=== PATIENT | female | born 1970 | race Caucasian/White ===

== ENCOUNTER 2020-11-08 09:45 | Observation (INO) | payer OTHER, SELFPAY ==
[2020-11-08] VITALS (8 sets, daily range): BP systolic 120–151; BP diastolic 69–91; PULSE 66–93; RESP 16–20; TEMP 36.2–37.3; O2SAT 92–96; BMI 38.5
--- NOTE | ~2020-11-08 | XR_ITS ---
EXAMINATION: XR chest 1V portable EXAM DATE: 11/08/2020 11:34 INDICATION: Cough. TECHNIQUE: Frontal and lateral projections of the chest obtained and reviewed. There is no prior gustabo dy for comparison. FINDINGS: Some scattered linear left basilar opacities, most consistent with atelectasis. Can't excl ude developing infection. Please clinically correlate. The lungs are otherwise clear. There are no p leural effusions. The cardiomediastinal silhouette is within normal limits. There is no pneumothora x suspected. The bones and soft tissues are unremarkable. IMPRESSION: Predominantly linear left basilar opacities, atelectasis but can't exclude developing inf ection. Please clinically correlate. Reviewed, dictated and finalized at location B. 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 Please clinically correlate.
--- NOTE | ~2020-11-08 | US_ITS ---
EXAMINATION: US venous doppler [facility] DATE: 11/09/2020 13:10 INDICATION: Left lower limb pain TECHNIQUE: Grayscale ultrasound images without and with compression and Doppler ultrasound images of the bilateral lower extremity veins were obtained. COMPARISON: None. FINDINGS: The visualized portions of right common femoral vein, profunda (deep) femoral vein, femoral vein, pop liteal vein, posterior tibial veins, peroneal veins, gastrocnemius vein and greater saphenous vein ou tflow are patent. The visualized portions of left common femoral vein, profunda femoral vein, femoral vein, popliteal v ein, posterior tibial veins, peroneal veins, gastrocnemius vein and greater saphenous vein outflow ar e patent. IMPRESSION: 1. No deep venous thrombosis in either lower limb. Reviewed, dictated and finalized at location A. RECOVERER
--- NOTE | ~2020-11-08 | CT_ITS ---
EXAMINATION: CTA chest PE protocol EXAM DATE: 11/09/2020 08:10 INDICATION: Hypoxia. Shortness of breath. TECHNIQUE: Spiral CTA of the chest (pulmonary arteries) was performed with 100 cc Omnipaque 350 intr avenous contrast injection. Images were acquired during the pulmonary arterial phase. Coronal maxi mum intensity projection 3D-reconstructions were created by the technologist on dedicated workstation . Axial, coronal and sagittal reformatted images were reviewed. The dose-length product (DLP) for t his examination was 896.40 mGy-cm. The exposure was tailored according to patient size (auto mA exp osure control), and iterative reconstruction (ASIR) was used as additional dose reduction technique. There is no prior study for comparison. FINDINGS: Pulmonary arteries are well opacified and without intraluminal filling defects. No thora cic aortic dissection. There our scattered bibasilar predominantly linear opacities with small regions of confluence, appear ance most consistent with atelectasis or atelectasis and infection. There is mild interlobular septal thickening, dependent predominant, possible mild pulmonary edema. There are no pleural or pericardia l effusions. Tracheobronchial tree is patent. There is no mediastinal, hilar or axillary lymphade nopathy. There is no pneumothorax. Heart normal in size. There is mild coronary arterial calcif ication, arterial sclerosis. Gastroesophageal surgical changes and small hiatal hernia or gastric pu ll-through. There is mild thoracic spondylosis without osteoblastic or osteolytic lesions identified . IMPRESSION: 1. Patchy bibasilar predominantly linear opacities could be atelectasis, possibly with superimposed infection. 2. Mild intralobular septal thickening, possible mild pulmonary edema, or interstitial lung disease of chronic. 3. No pulmonary emboli. Reviewed, dictated and finalized at location B. L MAID IMPRESSION: 1. Patchy bibasilar predominantly linear opacities could be atelectasis, possi milagro with superimposed infection. 2. Mild intralobular septal thickening, possible mild pulmonary edema, or inte rstitial lung disease of chronic. 3. No pulmonary emboli.
--- NOTE | ~2020-11-08 | CT_ITS ---
EXAMINATION: CT brain wo con EXAM DATE: 11/09/2020 08:10 INDICATION: Headache, photophobia. Shortness of breath and hypoxemia. TECHNIQUE: Spiral CT of the head was performed without contrast. Axial, coronal and sagittal images were reviewed. The dose-length product (DLP) for this examination was 605.33 mGy-cm. The exposure w as tailored according to patient size, and iterative reconstruction (ASIR) was used as additional dos e reduction technique. There is no prior study for comparison. FINDINGS: There is no acute intraparenchymal hemorrhage. No evidence of intraparenchymal brain mass lesion. No evidence of acute infarction. There is no mass effect or midline shift. The ventricles are normal in size. There are no extra-axial collections. There are no acute calvarial fractures. T he orbits are unremarkable. Soft tissue is unremarkable. The visualized sinuses and mastoid air lionel ls are well aerated. IMPRESSION: 1. Normal head CT examination. Reviewed, dictated and finalized at location B. 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
[2020-11-08 11:18] LABS: Basophils Percent Auto 0.2 % (0.2-1.2); Eosinophils Absolute Auto 0.2 K/mm3 (0-0.3); Eosinophils Percent Auto 3.6 % (0-4.4); Hematocrit 35.6 % (37.0-47.0); Immature Granulocyte Absolute 0.02 K/mm3 (0.00-0.031); Immature Granulocyte Percent A 0.3 % (0-0.5); Lymphocytes Absolute Auto 0.47 K/mm3 (0.9-3.2); Lymphocytes Percent Auto 7.7 % (18.3-44.2); Mean Corpuscular HGB Conc 33.7 g/dl (32-36); Mean Corpuscular Hemoglobin 31.9 pg (26-34); Mean Corpuscular Volume 94.7 fl (80-100); Mean Platelet Volume 9.1 fl (7.4-10.4); Monocytes Absolute Auto 0.5 K/mm3 (0.1-0.6); Monocytes Percent Auto 8.2 % (2.6-8.5); Neutrophils Absolute Auto 4.9 K/mm3 (1.3-6.7); Platelet Count Result 204 k/mm3 (150-375); Red Blood Count 3.76 M/mm3 (4.2-5.4); Red Cell Distribution Width 14.3 % (11.5-14.5); White Blood Count 6.1 K/mm3 (4.5-10.0)
[2020-11-08 11:28] LABS: Prothrombin Time 13.4 Seconds (11.1-14.7)
[2020-11-08 11:29] LABS: Partial Thromboplastin Time 32.6 SECONDS (22.3-36.8)
[2020-11-08 11:33] LABS: Lactic Acid Reflex 0.7 mmol/L (0.7-2.1)
[2020-11-08 11:36] LABS: Alanine Aminotransferase 25 U/L (4-35); Albumin Level 3.6 g/dL (3.5-5.1); Alkaline Phosphatase 58 U/L (38-126); Anion Gap 3 mmol/L (8-16); Aspartate Amino Transferase 21 U/L (14-36); Bilirubin,Total 0.6 mg/dL (0.2-1.3); Blood Urea Nitrogen 12 mg/dL (7-17); Calcium 7.9 mg/dL (8.4-10.2); Carbon Dioxide 28 mmol/L (22-30); Chloride 104 mmol/L (98-107); Estimated CRCL calculation 81 ml/min; Estimated Glomerular Filt Rate 59; Glucose 103 mg/dL (65-105); Lipase 41 U/L (23-300); Potassium 3.7 mmol/L (3.4-5.0); Sodium 135 mmol/L (137-145)
[2020-11-08] MEDS: DEXAMETHASONE SOD PHOS INJ 4 MG/ML VIAL 6 MG IV PUSH (11:37)
[2020-11-08] MEDS: SODIUM CHLORIDE 0.9% IV 1,000 ML 999 ML IV CONT (11:37)
[2020-11-08] MEDS: ONDANSETRON INJ 4 MG/2 ML VIAL IV PUSH (11:37)
[2020-11-08 13:01] LABS: Add Urine Microscopic? YES; Appearance Urine Cloudy (Clear); Bacteria Urine 4+ /hpf; Bilirubin Urine Negative (Negative); Blood Urine Negative (Negative); Color Urine Yellow (Yellow); Glucose Urine UA Negative (Negative); Ketones Urine Trace mg/dL (Negative); Leukocyte Esterase Ur Negative LEU/UL (Negative); Mucus Urine Rare /lpf; Nitrate Urine Negative (Negative); Protein Urine Negative (Negative); RBC Urine 0-2 /hpf (0-2); Specific Grav Ur 1.015 (1.001-1.035); Squamous Epithelial Cell Urine Many /hpf (Few); Urobilinogen Urine Negative mg/dL (<2.0)
[2020-11-08 14:01] LABS: Base Excess ABG -2.8 mEq/l (+/-2.0); HCO3 ABG 21.8 mEq/l (22.0-26.0); Methemoglobin ABG 0.1 %THb (0-1.5); Oxygen Content ABG 16.5 %vol (16.0-22.0); Oxygen Saturation ABG 93.7 % (95.0-100.0); PCO2 ABG 37.3 mmHg (35.0-45.0); PO2 ABG 68.8 mmHg (80.0-100.0); PO2 FiO2 Ratio Arterial Blood 3.44 %; Reduced Hemoglobin 6.9 %THb (0-5.0); Total Hemoglobin 12.7 g/dL (12.0-18.0); pH ABG 7.385 (7.350-7.450)
[2020-11-08 14:02] LABS: Device NASAL CANNULA; Fractional Inspired Oxygen 20 %; Modified Allen's Test Pass; Site Drawn RIGHT RADIAL
--- NOTE | 2020-11-08 14:27 | ED.GENADULT ---
HPI - General Adult General Chief complaint: Shortness of Breath/Dyspnea <JOSELO Goodman Last Filed: 11/08/20 14:53> Stated complaint: sob/weak/flores <JOSELO Goodman Last Filed: 11/08/20 14:53> Time Seen by Provider: 11/08/20 10:37 <JOSELO Goodman Last Filed: 11/08/20 14:53> Source: patient <JOSELO Goodman Last Filed: 11/08/20 14:53> Mode of arrival: ambulatory <JOSELO Goodman Last Filed: 11/08/20 14:53> Limitations: no limitations <JOSELO Goodman Last Filed: 11/08/20 14:53> History of Present Illness HPI narrative: Patient is a 50-year-old female who presents with 3 days duration of shortness of breath cough fatigue weakness patient with history of tobacco abuse is also currently being treated for urinary tract infection with 2 antibiotics by primary care patient denies sick contacts notes that her has not been sick patient on arrival is ill-appearing denies vomiting diarrhea currently patient does note nausea <JOSELO Goodman Last Filed: 11/08/20 14:53> Related Data Home medications: Home Medications Medication Instructions Recorded Confirmed bupropion HCl 300 mg 24 hr tablet, 300 mg PO QAM 03/17/20 11/08/20 extended release duloxetine 60 mg capsule,delayed 60 mg PO DAILY 03/17/20 11/08/20 release sprinkle estradiol 2 mg tablet 2 mg PO DAILY 03/17/20 11/08/20 trazodone 100 mg tablet 100 mg PO .QHS tablet 03/17/20 11/08/20 naltrexone 50 mg tablet 50 mg PO DAILY 08/25/20 11/08/20 azelastine 137 mcg INTRANASAL DAILY 11/08/20 11/08/20 fluticasone propionate 1 spray INTRANASAL DAILY 11/08/20 11/08/20 nitrofurantoin monohyd/m-cryst 100 mg PO BID 11/08/20 11/08/20 <JOSELO Goodman Last Filed: 11/08/20 14:53> Allergies/adverse reactions: Allergies Allergy/AdvReac Type Severity Reaction Status Date / Time amoxicillin Allergy Unknown horrendous Verified 11/08/20 16:45 yeast infection, usually doesn't seem to work <Kodak Dixon PA-C - Last Filed: 11/08/20 14:53> Review of Systems Review of Systems: All systems reviewed & are unremarkable except as noted in HPI and below <Kodak Dixon PA-C - Last Filed: 11/08/20 14:53> [facility] Past Medical History Medical History: Medical History (Updated 11/08/20 @ 18:08 by Felicitas Mendoza PA-C) COVID-19 (~05/2020) History of alcohol dependence History of shingles Hormone replacement therapy MDD (major depressive disorder), recurrent episode, moderate Obesity, Class II, BMI 35-39.9, isolated (see actual BMI) Surgical menopause Thyroid nodule <Kodak Dixon PA-C - Last Filed: 11/08/20 14:53> Surgical History Surgical History: Surgical History (Updated 11/08/20 @ 18:08 by Felicitas Mendoza PA-C) Bariatric surgery status Gastric sleeve. History of cholecystectomy History of total hysterectomy with bilateral salpingo-oophorectomy (BSO) (~08/2018) <Kodak Dixon PA-C - Last Filed: 11/08/20 14:53> Family History Family History: Family History Sibling Patient's sister is in good health Mother Patient's mother is in good health Family history of chronic obstructive pulmonary disease Asthma COPD (chronic obstructive pulmonary disease) Father No problems noted. Grandparent Diabetes mellitus Other Depression Family history of blood dyscrasia Hypertension Patient's father is <Kodak Dixon PA-C - Last Filed: 11/08/20 14:53> Social History Social History: Social History (Updated 11/08/20 @ 18:09 by Felicitas Mendoza PA-C) Social History: Surrogate decision maker: Hermann Saleh, . Code status: Full code. Smoking packs per day: 0.5 Smoking cigarettes per day: 10.0 Years smoked: 23 Smoking pack-years: 11.50 Smoking status: Current ever
[2020-11-08] MEDS: LACTATED RINGERS 1,000 ML 125 ML IV CONT (16:58)
--- NOTE | 2020-11-08 17:11 | ADMGEN ---
This patient, Nanda Saleh, was admitted to 3 Med Surg Room 309-01 @ 1625. Patient/family oriented to hospital policies and general routines including ID bracelet, bed and alarms, visiting hours, pain management, procedures, bathroom and other care routines, personal items, smoking policy, room service/diet, and visiting hours. Information on how to activate the Rapid Response Team has been discussed. Patient/Family are encouraged to report perceived risks to care and to ask questions if they do not understand what they are told or what they should do.
--- NOTE | 2020-11-08 18:05 | PM.IMHP ---
H&P: HPI History of Present Illness Date/Time: 11/08/20 18:00 Chief Complaint: Multiple complaints. Narrative: This is a 50-year-old female smoker who presented to the emergency department earlier today via private vehicle from home with multiple complaints. She has not been feeling well for the last several days to include diffuse frontal headache with photophobia, sinus congestion, body aches, chest congestion, intermittent pleuritic pain with deep inspiration, and fever up to nearly 103? Fahrenheit. She is just finishing a prescription for Macrobid due to recurrent urinary tract infection, however she continues to have dysuria, urgency, and lower abdominal pressure. At times she has some mild back pain that she thinks may be ?kidney pain.? Her boss at work apparently had similar symptoms. She had COVID 19 in May 2020 and reports similar symptoms at that time. She recently traveled via car to [facility] and is worried that she may have a pulmonary embolism given the recent travel and intermittent pleuritic chest pain in the setting of oxygen requirement (she is on 1 liter nasal cannula). No vertigo, auditory visual changes, focal weakness, paresthesias, neck ache, sore throat, rash, exertional chest pain, vomiting, or diarrhea. Review of Systems Review of Systems: Narrative: Twelve systems were reviewed with pertinent positives and negatives as per HPI. Except as documented, all other systems were reviewed and are negative. [facility] Past Medical History Medical History (Updated 11/09/20 @ 03:22 by Felicitas Mendoza PA-C) COVID-19 (~05/2020) History of alcohol dependence History of shingles Hormone replacement therapy MDD (major depressive disorder), recurrent episode, moderate Obesity, Class II, BMI 35-39.9, isolated (see actual BMI) Surgical menopause Thyroid nodule Tobacco dependence Surgical History Surgical History (Updated 11/08/20 @ 18:08 by Felicitas Mendoza PA-C) Bariatric surgery status Gastric sleeve. History of cholecystectomy History of total hysterectomy with bilateral salpingo-oophorectomy (BSO) (~08/2018) Family History Family History Sibling Patient's sister is in good health Mother Patient's mother is in good health Family history of chronic obstructive pulmonary disease Asthma COPD (chronic obstructive pulmonary disease) Father No problems noted. Grandparent Diabetes mellitus Other Depression Family history of blood dyscrasia Hypertension Patient's father is Social History Social History (Updated 11/08/20 @ 18:09 by Felicitas Mendoza PA-C) Social History: Surrogate decision maker: Hermann Saleh, . Code status: Full code. 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 Substance use: former Substance use type: marijuana, crack/cocaine and amphetamines Additional living arrangements comments: Lives in [place] with her . Additional occupation/education comments: Employed. Gender identity (if verbalized by the patient): Female Spiritual care concerns: No Meds Home Medications and Allergies Home Medications Medication Instructions Recorded Confirmed Type bupropion HCl 300 mg 24 hr tablet, 300 mg PO QAM 03/17/20 11/08/20 History extended release duloxetine 60 mg capsule,delayed 60 mg PO DAILY 03/17/20 11/08/20 History release sprinkle estradiol 2 mg tablet 2 mg PO DAILY 03/17/20 11/08/20 History trazodone 100 mg tablet 100 mg PO .QHS tablet 03/17/20 11/08/20 History naltrexone 50 mg tablet 50 mg PO DAILY 08/25/20 11/08/20 Histor
[2020-11-08 20:35] LABS: SARS-CoV-2 RNA PCR Negative
[2020-11-08] MEDS: FAMOTIDINE 20 MG/2 ML VIAL IV PUSH (21:15)
[2020-11-08] MEDS: traZODone HCL 50 MG TABLET 100 MG PO (23:25)
--- NOTE | 2020-11-09 00:12 | PHAR ---
Estradiol 2mg tab Take 1 by mouth daily verified and sent back to floor for patient use.
[2020-11-09] MEDS: ESTRADIOL 2 MG TABLET 1 EACH BY MOUTH (04:03)
[2020-11-09 05:42] VITALS: BP 114/72; PULSE 58; RESP 18; TEMP 36.5; O2SAT 100
[2020-11-09 06:49] LABS: D Dimer 0.71 ug/mL (<0.48)
[2020-11-09 07:00] LABS: Basophils Percent Auto 0.3 % (0.2-1.2); Eosinophils Absolute Auto 0.5 K/mm3 (0-0.3); Eosinophils Percent Auto 6.4 % (0-4.4); Hemoglobin 10.8 g/dL (12.0-15.0); Immature Granulocyte Absolute 0.04 K/mm3 (0.00-0.031); Immature Granulocyte Percent A 0.5 % (0-0.5); Lymphocytes Absolute Auto 0.79 K/mm3 (0.9-3.2); Mean Corpuscular HGB Conc 32.7 g/dl (32-36); Mean Corpuscular Volume 94.8 fl (80-100); Mean Platelet Volume 9.8 fl (7.4-10.4); Monocytes Absolute Auto 0.5 K/mm3 (0.1-0.6); Monocytes Percent Auto 5.7 % (2.6-8.5); Neutrophils Absolute Auto 6.1 K/mm3 (1.3-6.7); Neutrophils Percent Auto 77.1 % (45.5-73.1); Platelet Count Result 219 k/mm3 (150-375); Red Blood Count 3.48 M/mm3 (4.2-5.4); Red Cell Distribution Width 14.5 % (11.5-14.5); White Blood Count 7.9 K/mm3 (4.5-10.0)
[2020-11-09 07:22] LABS: Anion Gap 0 mmol/L (8-16); Blood Urea Nitrogen 10 mg/dL (7-17); Calcium 7.9 mg/dL (8.4-10.2); Carbon Dioxide 30 mmol/L (22-30); Chloride 108 mmol/L (98-107); Estimated CRCL calculation 104 ml/min; Estimated Glomerular Filt Rate > 60; Glucose 112 mg/dL (65-105); Sodium 138 mmol/L (137-145)
[2020-11-09 07:40] VITALS: O2SAT 95
[2020-11-09] MEDS: AZELASTINE HCL NASAL 0.1% 137 MCG/SPR 30 ML BTL 1 SPRAY NASAL (08:42)
[2020-11-09] MEDS: buPROPion HCL XL (24 HR) 150 MG TABCR 300 MG PO (08:43)
[2020-11-09] MEDS: DULoxetine HCL 60 MG CAPSULE.DR PO (08:44)
[2020-11-09] MEDS: FLUTICASONE PROPIONATE 0.05% NA SPR 16 GM BTL (*BKC) 1 SPRAY NASAL (08:44)
[2020-11-09] MEDS: ENOXAPARIN 40 MG/0.4 ML SYRINGE SUB-Q (09:45)
--- NOTE | 2020-11-09 10:07 | PM.IMPN ---
Progress Note: A&P Assessment and Plan (1) Hypoxemia: Code(s): R09.02 - Hypoxemia Status: Acute Assessment and Plan: Evident on ABG; Patient now on RA since this morning and tolerating well. D-dimer mildly elevated; thus subsequent CTA chest shows atelectasis with possible superimposed infection; mild intralobular septal thickening suggesting mild pulmonary edema vs interstitial lung disease of chronic; no PE identified. She overall feels better. She has been on azithromycin and Rocephin since arrival to ED. Will continue Azithromycin 500 mg to complete 3 days total; continue Rocephin today and transition to PO cefdinir tomorrow and complete 5 days total of cephalosporin to treat possible pneumonia Will order Venous Doppler of LE as well given pain behind knee recently in setting of mildly elevated d-dimer and hormone therapy to rule out DVT, although this is unlikely Mucinex Q12hr Tyelnol PRN for fevers Will do PEP therapy Monitor overnight; if not requiring oxygen for 24 hours, likely discharge tomorrow (2) Abnormal chest x-ray: Code(s): R93.89 - Abnormal findings on diagnostic imaging of other specified body structures Status: Acute Assessment and Plan: Please see above a/p (3) Bacteriuria: Code(s): R82.71 - Bacteriuria Status: Acute Assessment and Plan: Patient denies of any symptoms recently. UCx pending. BCx pending. Only had 1 day left of macrobid; this has been on hold since arrival. UA shows bacteriuria, although many squamous epithelial cells noted. Monitor Continue treatement for possible pneumonia as detailed above Follow cultures (4) Tobacco dependence: Code(s): F17.200 - Nicotine dependence, unspecified, uncomplicated Status: Acute Assessment and Plan: Smoking cessation encouraged Subjective Date/time seen: 11/09/20 10:07 Interval history: Patient is a 50-year-old female smoker who is seen in follow up for hypoxemia suspected to be due to possible CAP; here for VTE r/o, as well. Patient states she feels somewhat better today. Still slightly short of breath, but improved. Slight chest pain in her upper chest when taking deep breaths. Tolerating diet okay. Nursing reports weaning her to RA this morning. Reports having a headache as well. Slightly constipated; would like a laxative. She did report pain behind her left knee last week that lasted a few days, then resolved spontaneously; does not believe there was swelling or redness; denies any current similar symptoms. No other complaints. Denies f/c/s, dizziness, lightheadedness, changes in v/h, current cp/palpitations, n/v/d, abd pain, changes in BMs, dysuria, hematuria, cloudy urine, calf pain/swelling Review of Systems Review of Systems: All systems reviewed & are unremarkable except as noted in HPI and below Exam Narrative: Exam Narrative: General: Patient sitting upright in bed in no acute distress. Lights dim in room. Anxious appearing HEENT: Normocephalic, EOMI, oral mucosa moist. Cardiovascular: Rate and rhythm are regular. No notable murmur, rub, or gallop. Respiratory: mild crackles in b/l bases. Non-labored breathing. On RA at time of visit Abdomen: Soft, non-tender, non-distended, bowel sounds present. Extremities: Peripheral pulses intact. No edema. NTTP b/l calves Neuro: No focal neurological deficits. Speech is clear. Objective Data Vital Signs Vital Signs: Last Vital Signs Temp 97.7 F 11/09/20 05:42 Pulse 58 L 11/09/20 05:42 Resp 18 11/09/20 05:42 BP 114/72 11/09/20 05:42 Pulse Ox 95 11/09/20 07:40 Intake/Output Intake/Output: Intake & Output 11/06/20 11/07/20 11/08/20 11/09/20 23:59 23:59 23:59 23:59 Intake Total 1300 500 Output Total 1300 Balance 1300 -800 Meds/Results Me
[2020-11-09] MEDS: KETOROLAC 15 MG/ML VIAL (*BKC) IV PUSH (10:26)
[2020-11-09] MEDS: polyethylene glycoL 3350 17 GM POWD.PACK PO (10:27)
[2020-11-09] MEDS: guaiFENesin 12 HR 600 MG TABCR 1200 MG PO ×2 (10:27→20:22)
[2020-11-09 10:55] VITALS: O2SAT 93
[2020-11-09 14:00] VITALS: BP 121/66; PULSE 62; RESP 16; TEMP 36.2; O2SAT 97
[2020-11-09] MEDS: traZODone HCL 50 MG TABLET 100 MG PO (20:22)
[2020-11-09 21:38] VITALS: BP 105/68; PULSE 57; RESP 16; TEMP 36.3; O2SAT 98
[2020-11-10 06:00] VITALS: BP 116/74; PULSE 54; RESP 16; TEMP 36.4; O2SAT 98
[2020-11-10 06:14] LABS: Basophils Percent Auto 0.5 % (0.2-1.2); Eosinophils Absolute Auto 0.5 K/mm3 (0-0.3); Eosinophils Percent Auto 13.9 % (0-4.4); Hematocrit 31.3 % (37.0-47.0); Hemoglobin 10.5 g/dL (12.0-15.0); Immature Granulocyte Absolute 0.01 K/mm3 (0.00-0.031); Immature Granulocyte Percent A 0.3 % (0-0.5); Mean Corpuscular HGB Conc 33.5 g/dl (32-36); Mean Corpuscular Hemoglobin 31.8 pg (26-34); Mean Corpuscular Volume 94.8 fl (80-100); Mean Platelet Volume 9.7 fl (7.4-10.4); Monocytes Absolute Auto 0.5 K/mm3 (0.1-0.6); Monocytes Percent Auto 13.1 % (2.6-8.5); Neutrophils Absolute Auto 1.5 K/mm3 (1.3-6.7); Neutrophils Percent Auto 38.2 % (45.5-73.1); Platelet Count Result 215 k/mm3 (150-375); Red Cell Distribution Width 14.5 % (11.5-14.5); White Blood Count 3.8 K/mm3 (4.5-10.0)
[2020-11-10 06:28] LABS: Anion Gap 1 mmol/L (8-16); Blood Urea Nitrogen 18 mg/dL (7-17); Calcium 8.2 mg/dL (8.4-10.2); Carbon Dioxide 30 mmol/L (22-30); Chloride 107 mmol/L (98-107); Estimated CRCL calculation 84 ml/min; Estimated Glomerular Filt Rate 59; Glucose 90 mg/dL (65-105); Magnesium 1.6 mg/dL (1.6-2.3); Potassium 4.5 mmol/L (3.4-5.0); Sodium 138 mmol/L (137-145)
[2020-11-10] MEDS: ENOXAPARIN 40 MG/0.4 ML SYRINGE SUB-Q (08:28)
[2020-11-10] MEDS: DULoxetine HCL 60 MG CAPSULE.DR PO (08:28)
[2020-11-10] MEDS: AZELASTINE HCL NASAL 0.1% 137 MCG/SPR 30 ML BTL 1 SPRAY NASAL (08:28)
[2020-11-10] MEDS: FLUTICASONE PROPIONATE 0.05% NA SPR 16 GM BTL (*BKC) 1 SPRAY NASAL (08:28)
[2020-11-10] MEDS: buPROPion HCL XL (24 HR) 150 MG TABCR 300 MG PO (08:28)
[2020-11-10] MEDS: ESTRADIOL 2 MG TABLET 1 EACH BY MOUTH (08:29)
[2020-11-10] MEDS: guaiFENesin 12 HR 600 MG TABCR 1200 MG PO (08:29)
--- NOTE | 2020-11-10 10:58 | PM.DS ---
DS: Admitting Diagnosis Admitting Diagnosis Admitting Diagnosis: Hypoxemia, abnormal CXR, bacteruria DS: Discharge Diagnosis Discharge Diagnosis (1) Hypoxemia: Code(s): R09.02 - Hypoxemia Status: Acute Assessment and Plan: Evident on ABG; Patient now on RA since this morning and tolerating well. D-dimer mildly elevated; thus subsequent CTA chest shows atelectasis with possible superimposed infection; mild intralobular septal thickening suggesting mild pulmonary edema vs interstitial lung disease of chronic; no PE identified. She overall feels better again today. She has been on azithromycin and Rocephin since arrival to ED for CAP Azithromycin 500 mg PO today to complete 3 days of azithromycin for CAP Transition to PO cefdinir through 11/12 to complete 5 days of cephalosporin for CAP Mucinex prn Tyelnol PRN for fevers Will do PEP therapy f/u with PCP Discharge home today (2) Abnormal chest x-ray: Code(s): R93.89 - Abnormal findings on diagnostic imaging of other specified body structures Status: Acute Assessment and Plan: With possible findings of PNA on CTA chest. Please see above a/p (3) Bacteriuria: Code(s): R82.71 - Bacteriuria Status: Acute Assessment and Plan: Patient denies of any symptoms recently. UCx shows likely contaminate. BCx NGTD x 2. Only had 1 day left of macrobid; this has been on hold since arrival. UA shows bacteriuria, although many squamous epithelial cells noted. F/u with PCP D/c macrobid Continue treatment for possible pneumonia as detailed above Follow cultures (4) Tobacco dependence: Code(s): F17.200 - Nicotine dependence, unspecified, uncomplicated Status: Acute Assessment and Plan: Smoking cessation encouraged DS: Summary Hospital Course Reason for hospitalization: Hypoxemia, CAP Hospital Course: Date of arrival: 11/08/20 Date of discharge: 11/10/20 Patient is a 50-year-old female smoker who presented to the emergency department on 11/08 via private vehicle from home with multiple complaints. Patient had been having a frontal headache, photophobia, sinus congestion, body aches, chest congestion, intermittent pleuritic pain with deep inspiration, and fever nearly 103 for the previous several days. While in the ED, she was swabbed for COVID (negative). ABG was performed and was found to have pO2 of 68.8, however, had a reduced hemoglobin of 6.9. She was also placed on 1 L O2 via NC in the ED. Patient was admitted for COVID rule out and PE rule out. Please see H&P for further details. Patient was admitted to the hospitalist service for further management/treatment. As above, COVID testing was negative. From the ED, patient was placed on azithromycin and Rocephin IV for empiric treatment of CAP. She was continued on this treatment given the negative covid results and that the CTA chest showed patchy bibasilar predominantly linear opacities suggesting atelectasis with possible superimposed infection; CTA chest was negative for PE. Venous Doppler of LE was also negative for DVT. Head CT was obtained on 11/09 as well given her headaches and was found to be normal. BCx were obtained in ED and were negative to date x 2. UCx showed likely contaminate. Patient was weaned to RA on 11/09. Clinically patient had improved during hospital course. Patient had azithromycin 500 mg for three days during stay. She was transitioned to cefdinir at discharge and was to continue this through 11/12. She was to follow up with her PCP in 1-2 weeks. Patient agreeable and comfortable with plan for discharge. Patient hemodynamically stable and in improved condition for discharge on 11/10 Status at Discharge Overall status at discharge: patient is progressing back to baseline
[2020-11-10] MEDS: CEFDINIR 300 MG CAPSULE PO (11:47)
[2020-11-10] MEDS: AZITHROMYCIN 250 MG TABLET 500 MG PO (11:47)
== END 2020-11-10 12:20 | disposition home or self-care (01) ==
LOC: ANHED 14:53 → ANH3MEDSUR 15:44
PROVIDERS: Emergency Medicine Emergency Medical Services; Physician Assistant; Admitting Provider Family Medicine; Emergency Provider Emergency Medicine; PCP Family Medicine; Visit Provider Physician Assistant
DX: R09.02 Hypoxemia (principal); R91.8 Other nonspecific abnormal finding of lung field; R82.71 Bacteriuria; R06.02 Shortness of breath; M79.662 Pain in left lower leg; F33.1 Major depressive disorder, recurrent, moderate; Z86.16 Personal history of COVID-19; Z98.84 Bariatric surgery status; F17.210 Nicotine dependence, cigarettes, uncomplicated; F17.290 Nicotine dependence, other tobacco product, uncomplicated; F10.21 Alcohol dependence, in remission; Z20.822 Contact with and (suspected) exposure to COVID-19
CPT/HCPCS: 36415; 36600; 70450; 71045; 71275; 80048; 80053; 81001; 82375; 82805; 83050; 83605; 83690; 83735; 85025; 85380; 85610; 85730; 86140; 87040; 87086; 87088; 93970; 94667; 96365; 96366; 96367; 96372; 96375; 96376; 99285; A9270; C9803; G0378; J0131; J0456; J0696; J1100; J1650; J1885; J2405; J7030; J7120; Q9967; U0003; U0005

== ENCOUNTER → 2020-12-15 17:10 | Outpatient (CLI) | payer OTHER, SELFPAY ==
--- NOTE | ~2020-12-15 | MM_ITS ---
EXAMINATION: MM screening [facility] BI w ishaan HISTORY: Screening mammogram TECHNIQUE: Craniocaudal and mediolateral oblique 3-D tomosynthesis images were obtained and synthetic 2-D images were generated. CAD analysis was submitted and interpreted. COMPARISON: 08/28/2019, 11/07/2015, 10/12/2015 BREAST PARENCHYMAL COMPOSITION: There are scattered areas of fibroglandular density. FINDINGS: There is no evidence of suspicious mass, calcification, or architectural distortion to sugg est malignancy in either breast. There has been no suspicious interval change. IMPRESSION: 1. No mammographic evidence of malignancy. 2. Recommend routine screening mammography in one year. BI-RADS Category 1: Negative Reviewed, dictated and finalized at location A.
== END ==
PROVIDERS: Visit Provider Obstetrics & Gynecology
DX: Z12.31 Encounter for screening mammogram for malignant neoplasm of breast (principal)
CPT/HCPCS: 77063; 77067

== ENCOUNTER 2021-08-07 06:59 | Outpatient (CLI) | payer OTHER, SELFPAY ==
[2021-08-07 08:44] LABS: Basophils Absolute Auto 0.1 K/mm3 (0.0-0.1); Basophils Percent Auto 1.4 % (0.2-1.2); Eosinophils Absolute Auto 0.1 K/mm3 (0-0.3); Eosinophils Percent Auto 2.6 % (0-4.4); Hematocrit 39.3 % (37.0-47.0); Hemoglobin 12.9 g/dL (12.0-15.0); Immature Granulocyte Absolute 0.01 K/mm3 (0.00-0.031); Immature Granulocyte Percent A 0.2 % (0-0.5); Lymphocytes Absolute Auto 1.67 K/mm3 (0.9-3.2); Lymphocytes Percent Auto 33.6 % (18.3-44.2); Mean Corpuscular HGB Conc 32.8 g/dl (32-36); Mean Corpuscular Hemoglobin 32.2 pg (26-34); Monocytes Absolute Auto 0.5 K/mm3 (0.1-0.6); Monocytes Percent Auto 9.7 % (2.6-8.5); Neutrophils Absolute Auto 2.6 K/mm3 (1.3-6.7); Neutrophils Percent Auto 52.5 % (45.5-73.1); Platelet Count Result 277 k/mm3 (150-375); Red Blood Count 4.01 M/mm3 (4.2-5.4)
[2021-08-07 09:12] LABS: Alanine Aminotransferase 33 U/L (4-35); Albumin Level 4.4 g/dL (3.5-5.1); Alkaline Phosphatase 62 U/L (38-126); Anion Gap 5 mmol/L (8-16); Aspartate Amino Transferase 30 U/L (14-36); Bilirubin,Total 0.6 mg/dL (0.2-1.3); Blood Urea Nitrogen 15 mg/dL (7-17); Calcium 9.2 mg/dL (8.4-10.2); Carbon Dioxide 30 mmol/L (22-30); Chloride 105 mmol/L (98-107); Estimated Glomerular Filt Rate 53; Glucose 89 mg/dL (65-110); Potassium 4.3 mmol/L (3.4-5.0); Sodium 140 mmol/L (137-145)
[2021-08-07 10:23] LABS: Urine Cotinine NEGATIVE
== END 2021-08-07 07:00 | disposition home or self-care (01) ==
PROVIDERS: PCP Family Medicine; Visit Provider Family Medicine
DX: Z01.818 Encounter for other preprocedural examination (principal); Z98.84 Bariatric surgery status; D64.9 Anemia, unspecified; F17.200 Nicotine dependence, unspecified, uncomplicated
CPT/HCPCS: 80053; 80307; 85025

== ENCOUNTER 2022-02-19 01:34 | Day surgery (SDC) | payer OTHER, SELFPAY ==
[2022-02-08 12:31] VITALS: BMI 28.4
--- NOTE | 2022-02-19 09:13 | WPDANESEPPF ---
Anes - Initial Pre Proc Eval Procedure: Operation Date: 02/19/22 10:45 Proposed Procedures p Screening Colonoscopy - Isra Byrne MD Date/Time: 02/19/22 09:13 Surgeon: Isra Byrne MD Pre Op Diagnosis: neoplasm screening Patient Data Age: 51 Gender: F Height: 1.78 m Weight: 90 kg Allergies Allergy/AdvReac Type Severity Reaction Status Date / Time amoxicillin Allergy Unknown horrendous Verified 02/19/22 09:28 yeast infection, usually doesn't seem to work Home Medications Medication Instructions Recorded Confirmed Type estradiol 2 mg tablet 2 mg PO DAILY 03/17/20 02/08/22 History bupropion HCl 300 mg 24 hr tablet, See Rx Instructions .Route 08/28/21 02/08/22 Rx extended release .COMPLEX #90 tabs duloxetine 60 mg capsule,delayed See Rx Instructions .Route 08/28/21 02/08/22 Rx release .COMPLEX #90 caps trazodone 100 mg tablet See Rx Instructions .Route 10/23/21 02/08/22 Rx .COMPLEX #90 tabs Patient hx anesthesia problems: none Family hx anesthesia problems: none Results Review: All pre-operative results and documents have been reviewed as part of the pre-operative evaluation. [facility] Past Medical History Medical History COVID-19 (~05/2020) History of alcohol dependence History of shingles Hormone replacement therapy MDD (major depressive disorder), recurrent episode, moderate Obesity, Class II, BMI 35-39.9, isolated (see actual BMI) Surgical menopause Thyroid nodule Tobacco dependence Surgical History Surgical History Bariatric surgery status Gastric sleeve. History of cholecystectomy History of total hysterectomy with bilateral salpingo-oophorectomy (BSO) (~08/2018) Family History Family History Sibling Patient's sister is in good health Mother Patient's mother is in good health Family history of chronic obstructive pulmonary disease Asthma COPD (chronic obstructive pulmonary disease) Father No problems noted. Grandparent Diabetes mellitus Other Depression Family history of blood dyscrasia Hypertension Patient's father is Social History Social History Social History: Surrogate decision maker: Hermann Saleh, . Code status: Full code. 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 Substance use: former Substance use type: marijuana, crack/cocaine and amphetamines Other substance usage details: PT DENIES DRUG USE 02/08/22 Living arrangements: with family Additional living arrangements comments: Lives in [place] with her . Gender identity (if verbalized by the patient): Female Sexual Orientation (if Verbalized by the Patient): Straight or Heterosexual Spiritual care concerns: No Anes - Eval Final PreProcedure Day of Procedure 02/19/22 09:13 Patient weight: overweight Heart: regular rate and rhythm Lungs: clear to auscultation and normal air movement Airway: Mallampati scale class II Neurological: alert and oriented Last oral intake: >/= 8 hours ASA classification: II Emergent: no Anesthetic plan: proceed Anesthesia type and monitoring: general GIVS Results Review: All pre-operative results and documents have been reviewed as part of the pre-operative evaluation. Informed Consent: The patient's anesthetic plan and its attendant risks and benefits were discussed with the patient/family/POA.
[2022-02-19 09:29] VITALS: BP 119/79; PULSE 51; RESP 18; TEMP 36.5; O2SAT 100
[2022-02-19] MEDS: LACTATED RINGERS 1,000 ML 150 ML IV CONT (09:37)
--- NOTE | 2022-02-19 10:05 | PM.HPGS ---
History of Present Illness History of Present Illness Consent: Risks, benefits, and alternatives have been discussed and questions answered. Patient agrees to proceed with procedure. Chief complaint: neoplasm screening Narrative: Nanda Saleh is a 51 year old female here for first screening colonoscopy Review of Systems Constitutional: Constitutional: Denies headache(s) and Denies weakness Eyes: Eyes: Denies blurry vision ENT: Reports Normal hearing present, Denies headache(s) and Denies neck pain Cardiovascular: Cardiovascular: Denies chest pain and Denies dyspnea Respiratory: Respiratory: Denies dyspnea Gastrointestinal: Gastrointestinal: Reports no additional gastrointestinal complaints Genitourinary: Genitourinary: Denies dysuria Musculoskeletal: Musculoskeletal: Denies neck pain Integumentary/Breasts: Skin/Breast: Denies dry skin Neurologic: Reports Normal hearing present, Denies headache(s) and Denies weakness Psychiatric: Psychiatric: Denies anxiety Endocrine: Endocrine: Denies change in body appearance Hematologic/Lymphatic: Hematologic/Lymphatic: Denies easy bleeding Allergic/Immunologic: Allergic/Immunologic: Denies urticaria PMFSH Past Medical History Medical History COVID-19 (~05/2020) History of alcohol dependence History of shingles Hormone replacement therapy MDD (major depressive disorder), recurrent episode, moderate Obesity, Class II, BMI 35-39.9, isolated (see actual BMI) Surgical menopause Thyroid nodule Tobacco dependence Surgical History Surgical History Bariatric surgery status Gastric sleeve. History of cholecystectomy History of total hysterectomy with bilateral salpingo-oophorectomy (BSO) (~08/2018) Family History Family History Sibling Patient's sister is in good health Mother Patient's mother is in good health Family history of chronic obstructive pulmonary disease Asthma COPD (chronic obstructive pulmonary disease) Father No problems noted. Grandparent Diabetes mellitus Other Depression Family history of blood dyscrasia Hypertension Patient's father is Social History Social History Social History: Surrogate decision maker: Hermann Saleh, . Code status: Full code. 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 Substance use: former Substance use type: marijuana, crack/cocaine and amphetamines Other substance usage details: PT DENIES DRUG USE 02/08/22 Living arrangements: with family Additional living arrangements comments: Lives in [place] with her . Gender identity (if verbalized by the patient): Female Sexual Orientation (if Verbalized by the Patient): Straight or Heterosexual Spiritual care concerns: No Meds Home Medications and Allergies Home Medications Medication Instructions Recorded Confirmed Type estradiol 2 mg tablet 2 mg PO DAILY 03/17/20 02/08/22 History bupropion HCl 300 mg 24 hr tablet, See Rx Instructions .Route 08/28/21 02/08/22 Rx extended release .COMPLEX #90 tabs duloxetine 60 mg capsule,delayed See Rx Instructions .Route 08/28/21 02/08/22 Rx release .COMPLEX #90 caps trazodone 100 mg tablet See Rx Instructions .Route 10/23/21 02/08/22 Rx .COMPLEX #90 tabs Allergies Allergy/AdvReac Type Severity Reaction Status Date / Time amoxicillin Allergy Unknown horrendous Verified 02/19/22 09:28 yeast in
[2022-02-19 10:26] VITALS: BP 98/61; PULSE 56; RESP 16; O2SAT 100
[2022-02-19 10:36] VITALS: BP 101/68; PULSE 55; RESP 16; O2SAT 100
[2022-02-19 10:46] VITALS: BP 102/70; PULSE 45; RESP 16; O2SAT 100
== END 2022-02-19 10:50 | disposition home or self-care (01) ==
PROVIDERS: PCP Family Medicine; Visit Provider Internal Medicine Gastroenterology
PROC: 0DJD8ZZ Inspection of Lower Intestinal Tract, Via Natural or Artificial Opening Endoscopic (ICD-10-PCS; CPT 45378; principal; 2022-02-19 10:45)
DX: Z12.11 Encounter for screening for malignant neoplasm of colon (principal); F10.21 Alcohol dependence, in remission; F33.9 Major depressive disorder, recurrent, unspecified; E66.9 Obesity, unspecified; F17.210 Nicotine dependence, cigarettes, uncomplicated; Z68.28 Body mass index [BMI] 28.0-28.9, adult; Z98.84 Bariatric surgery status; Z79.890 Hormone replacement therapy
CPT/HCPCS: 45378; J2704; J7120

== ENCOUNTER → 2022-12-18 15:03 | Outpatient (CLI) | payer OTHER, SELFPAY ==
--- NOTE | ~2022-12-18 | MM_ITS ---
EXAMINATION: MM screening donny BI w ishaan HISTORY: Screening mammogram TECHNIQUE: Craniocaudal and mediolateral oblique 3-D tomosynthesis images were obtained and synthetic 2-D images were generated. CAD analysis was submitted and interpreted. COMPARISON: December 15, 2020, August 28, 2019 bilateral screening mammogram examinations BREAST PARENCHYMAL COMPOSITION: There are scattered areas of fibroglandular density. FINDINGS: There is no evidence of suspicious mass, calcification, or architectural distortion to sugg est malignancy in either breast. There has been no suspicious interval change. IMPRESSION: 1. No mammographic evidence of malignancy. 2. Recommend routine screening mammography in one year. BI-RADS Category 1: Negative Reviewed, dictated and finalized at location A.
== END ==
PROVIDERS: PCP Family Medicine; Visit Provider Obstetrics & Gynecology
DX: Z12.31 Encounter for screening mammogram for malignant neoplasm of breast (principal)
CPT/HCPCS: 77063; 77067

== ENCOUNTER 2024-02-12 15:00 | Outpatient (CLI) | payer OTHER, SELFPAY ==
--- NOTE | ~2024-02-12 | MM_ITS ---
EXAMINATION: MM screening donny BI w ishaan HISTORY: Screening TECHNIQUE: Craniocaudal and mediolateral oblique 3-D tomosynthesis images were obtained and synthetic 2-D images were generated. CAD analysis was submitted and interpreted. COMPARISON: Comparison to multiple prior studies sequentially, with oldest reviewed study dated 10/12. BREAST PARENCHYMAL COMPOSITION: Not dense: There are scattered areas of fibroglandular density. FINDINGS: There is no evidence of suspicious mass, calcification, or architectural distortion to sugg est malignancy in either breast. There has been no suspicious interval change. IMPRESSION: 1. No mammographic evidence of malignancy. 2. Recommend routine screening mammography in one year. BI-RADS Category 1: Negative Reviewed, dictated and finalized at location B.
== END 2024-02-12 15:01 | disposition home or self-care (01) ==
LOC: CHSIMG 15:01
PROVIDERS: PCP Family Medicine; Visit Provider Obstetrics & Gynecology
DX: Z12.31 Encounter for screening mammogram for malignant neoplasm of breast (principal)
CPT/HCPCS: 77063; 77067

== ENCOUNTER 2025-03-24 07:01 | Outpatient (CLI) | payer OTHER, SELFPAY ==
--- NOTE | ~2025-03-24 | XR_ITS ---
Left Hand Technique: PA, oblique, and lateral views were obtained. Clinical History: Pain Findings: No acute fracture or dislocation is seen. Osseous alignment is anatomic. Joint spaces are p reserved. Soft tissues are unremarkable. Impression: Unremarkable left hand. Reviewed, dictated and finalized at location M. Impression: Unremarkable left hand.
== END 2025-03-24 07:02 | disposition home or self-care (01) ==
PROVIDERS: PCP Family Medicine; Visit Provider Physician Assistant
DX: M79.642 Pain in left hand (principal); M79.645 Pain in left finger(s)
CPT/HCPCS: 73130

== ENCOUNTER 2025-09-10 08:35 | Outpatient (CLI) | payer OTHER, SELFPAY ==
--- NOTE | ~2025-09-10 | XR_ITS ---
XR hip BI 2V w AP pelvis 09/10/2025 09:02 Indication: Hip pain Procedure: AP pelvis and 2 views each hip Comparison: No prior studies for comparison. Findings: Mild osteoarthritis of the hips. Pelvic rings intact. There are pelvic phleboliths. Sacral foramen are symmetric. There is lower lumbar spondylosis partially visualized. There is osteitis pubis. Impression: 1: Mild bilateral symmetric osteoarthritis of the hips. Reviewed, dictated and finalized at location O. EGE RECRUITER Impression: 1: Mild bilateral symmetric osteoarthritis of the hips.
--- NOTE | ~2025-09-10 | XR_ITS ---
XR lumbar spine 2-3V 09/10/2025 09:02 Indication: Low back pain Procedure: 3 views lumbar spine Comparison: No prior studies for comparison. Findings: There is levoscoliosis. There are cholecystectomy clips. There is disc narrowing at all lumbar levels. Mild age-indeterminate superior endplate compression fracture of L3. There is grade 2 spondylolisthesis at L5-S1 secondary to spondylolysis. There is advanced multilevel facet hypertrophy. Impression: 1: Age-indeterminate superior endplate compression fracture of L3. 2: Severe lumbar spondylosis with levoscoliosis and grade 2 spondylolisthesis at L5-S1. Reviewed, dictated and finalized at location O. LOADER Impression: 1: Age-indeterminate superior endplate compression fracture of L3. 2: Severe lumbar spondylosis with levoscoliosis and grade 2 spondylolisthesis at L5-S1.
--- NOTE | ~2025-09-10 | XR_ITS ---
XR_[id number] 09/10/2025 09:02 Indication: Cervicalgia Procedure: 3 views cervical spine Comparison: No prior studies for comparison. Findings: Normal cervical lordosis. There is disc narrowing and endplate hypertrophy at C5-6, C6-7 and C7-T1. No prevertebral soft tissue swelling. Normal cervical alignment. Vertebral body heights are maintained. No acute fracture or traumatic malalignment. Impression: 1: Moderate cervical spondylosis. Reviewed, dictated and finalized at location O. TRAPPER Impression: 1: Moderate cervical spondylosis.
== END 2025-09-10 08:36 | disposition home or self-care (01) ==
LOC: MICIMG 08:36
PROVIDERS: PCP Family Medicine
DX: M47.896 Other spondylosis, lumbar region (principal); S32.030A Wedge compression fracture of third lumbar vertebra, initial encounter for closed fracture; X58.XXXA Exposure to other specified factors, initial encounter; M16.0 Bilateral primary osteoarthritis of hip; M47.892 Other spondylosis, cervical region
CPT/HCPCS: 72040; 72100; 73521